=== PATIENT | female | born 1995 | race Caucasian/White ===

== ENCOUNTER 2017-11-25 19:19 | Emergency (ER) | payer OTHER ==
[2017-11-25 20:32] LABS: #Basophils 0.1 thou/uL (0.0-0.2); #Eosinphils 0.1 thou/uL (0.0-0.7); #Lymphocytes 2.6 thou/uL (1.20-3.40); #Monocytes 0.8 thou/uL (0.11-0.59); #Neutrophils 8.3 thou/uL (1.40-6.50); %Basophils 0.5 % (0.0-1.0); %Eosinophils 0.5 % (0.0-10.0); %Lymphocytes 22.1 % (21.0-51.0); %Monocytes 6.4 % (0.0-10.0); %Neutrophils 70.5 % (42.0-75.0); Hemoglobin 13.9 g/dL (12.0-16.0); Mean Corpuscular HGB CONC 33.6 g/dL (32.0-36.0); Mean Corpuscular Hemoglobin 28.7 pg (27.0-31.0); Mean Corpuscular Volume 85.6 fl (81.0-99.0); Mean Platelet Volume 6.3 fL (7.4-10.4); Platelet Count 416 thou/uL (130-400); RBC Distribution Width 11.5 % (11.5-14.5); Red Blood Cell (RBC) Count 4.83 mill/uL (4.20-5.40); White Blood Cell (WBC) Count 11.8 thou/uL (4.8-10.8)
[2017-11-25 20:55] LABS: ALT (SGPT) 10 U/L (8-55); AST (SGOT) 9 U/L (5-34); Albumin 4.1 g/dL (3.5-5.0); Alkaline Phosphatase 84 U/L (40-150); Anion Gap 13 mmol/L (10-20); BUN (Urea Nitrogen) 7 mg/dL (7.0-18.7); Bilirubin, Total 0.2 mg/dL (0.2-1.2); Calc. Creatinine Clearance 0 mL/min (70-130); Calcium 10.4 mg/dL (7.8-10.44); Carbon Dioxide 24 mmol/L (22-29); Chloride 105 mmol/L (98-107); Estimated GFR-MDRD Greater than 90; Globulin 3.4 g/dL (2.4-3.5); Glucose 95 mg/dL (70-105); Lipase 13 U/L (8-78); Potassium 3.9 mmol/L (3.5-5.1); Protein, Total 7.5 g/dL (6.0-8.3); Sodium 138 mmol/L (136-145)
[2017-11-25 23:18] LABS: BHCG - Serum Negative (NEGATIVE); Pregs Control Background? CLEAR/WHITE (CLR/WHITE); Pregs Control Bar Appear? YES (CONTROL BAR)
[2017-11-25 23:56] LABS: Bilirubin Small (Negative); Blood, Urine Large (Negative); Clarity CLOUDY (Clear); Glucose, Urine (Dipstick) Negative (Negative); Leukocyte Large (Negative); Nitrite Positive (Negative); Protein, Urine (Dipstick) 30 mg/dL (Neg-Trace); Specific Gravity, Urine 1.023 (1.002-1.036)
[2017-11-25 23:58] LABS: Bacteria/HPF 4+ HPF (None Seen); Hyaline Casts/LPF 0-3 HYALINE CAST LPF (0-3 Hyaline); Pathc Cast-AUWi Flag 0.27 (0-2.49); Squamous Epithelial 0-3 HPF (0-3)
[2017-11-26 00:01] LABS: Pregnancy Test - Urine (BHCG) Negative (Negative); Specific Gravity 1.023 (1.002-1.036)
[2017-11-26 00:02] LABS: Pregu Control Background? CLEAR/WHITE (CLR/WHITE); Pregu Control Bar Appear? YES (CONTROL BAR)
[2017-11-26] MEDS ORDERED: cefTRIAXone\\ROCEPHIN 1 GM VIAL IM SCH (00:45)
[2017-11-26] MEDS ORDERED: Lidocaine 1% PF 5 ML VIAL ONE (00:47)
== END 2017-11-26 01:32 | disposition home or self-care (01) ==
LOC: ERS 19:19
DX: N30.01 Acute cystitis with hematuria (principal); R03.0 Elevated blood-pressure reading, without diagnosis of hypertension; G43.909 Migraine, unspecified, not intractable, without status migrainosus; J45.909 Unspecified asthma, uncomplicated; F41.9 Anxiety disorder, unspecified; F32.9 Major depressive disorder, single episode, unspecified
CPT/HCPCS: 36415; 80053; 81003; 81015; 81025; 83690; 84703; 85025; 87077; 87086; 87186; 96372; J0696; J2001

== ENCOUNTER 2019-09-26 08:03 | Inpatient (IN) | payer BC, OTHER ==
[2019-09-26] MEDS ORDERED: NS / Oxytocin 40 units/1000ml 1,000 ML IV PRN (20:39)
[2019-09-26] MEDS ORDERED: Ondansetron PF 4 MG/2 ML Vial IVP PRN (20:39)
[2019-09-26] MEDS ORDERED: Ibuprofen 800 MG TAB PO PRN (20:39)
[2019-09-26] MEDS ORDERED: Promethazine HCl 25 MG/ML VIAL IM PRN (20:39)
[2019-09-26] MEDS ORDERED: hydrALAZINE 20 MG/ML VIAL SLOW IVP PRN (20:39)
[2019-09-26] MEDS ORDERED: HYDROcodone/Acetaminophen 5/325 mg Tablet PO PRN ×2 (20:39)
[2019-09-26] MEDS ORDERED: Lidocaine 1% (PF) 30 ML VIAL SC PRN (20:39)
[2019-09-26] MEDS ORDERED: Butorphanol Tartrate 1 MG/ML VIAL SLOW IVP PRN (20:39)
[2019-09-26] MEDS ORDERED: NS w/ Oxytocin 10 units 500 ML IV SCH (20:39)
[2019-09-26 21:18] LABS: Hemoglobin 12.2 g/dL (12.0-16.0); Mean Corpuscular HGB CONC 34.9 g/dL (32.0-36.0); Mean Corpuscular Hemoglobin 29.6 pg (27.0-31.0); Mean Corpuscular Volume 84.9 fL (78.0-98.0); Mean Platelet Volume 7.6 fL (7.4-10.4); Platelet Count 277 thou/uL (130-400); RBC Distribution Width 12.5 % (11.5-14.5); Red Blood Cell (RBC) Count 4.12 mill/uL (4.20-5.40); White Blood Cell (WBC) Count 11.2 thou/uL (4.8-10.8)
--- NOTE | 2019-09-26 21:50 | PDOC.EVN ---
Event Note - Event Note Event Note: MARY Pringle At bedside now COOK Balloon Placement Time: [address] cook balloon. EDC is 10/17/19 Procedure and indication reviewed. Cook balloon placed per IFU. Max filled to 80/80 sequentially as per stepwise instillation as directed per IFU Complications: none CX visually zero to 1 cm at initiation
[2019-09-26 21:55] LABS: ALT (SGPT) 9 U/L (8-55); AST (SGOT) 8 U/L (5-34); Albumin 3.4 g/dL (3.5-5.0); Alkaline Phosphatase 129 U/L (40-110); Anion Gap 18 mmol/L (10-20); BUN (Urea Nitrogen) 8 mg/dL (7.0-18.7); Bilirubin, Total 0.2 mg/dL (0.2-1.2); Calc. Creatinine Clearance 0 mL/min (70-130); Calcium 8.7 mg/dL (7.8-10.44); Carbon Dioxide 18 mmol/L (22-29); Chloride 106 mmol/L (98-107); Estimated GFR-MDRD Greater than 90; Globulin 2.6 g/dL (2.4-3.5); Glucose 99 mg/dL (70-105); Potassium 3.9 mmol/L (3.5-5.1); Sodium 138 mmol/L (136-145)
[2019-09-26 22:02] LABS: Syphilis Antibody Nonreactive (Nonreactive); Syphilis Antibody Index 0.02 S/CO (<1.00 Non-Reactive)
[2019-09-26 23:34] LABS: HBSAg Index 0.18 S/CO (0-0.99); Hep B Surf Ag Non-Reactive S/CO (NonReactive)
[2019-09-26 23:50] VITALS: BMI 38.0
--- NOTE | 2019-09-27 06:29 | PDOC.LDHP ---
Labor and Delivery H&P Chief complaint: scheduled induction (for PIH) HPI: Pt is a 24yo G1 here for scheduled IOL for induced hypertension. Current gestational age (weeks): 37 Due date: 10/17/19 Dating criteria: last menstrual period, first trimester ultrasound Grav: 1 Para: 0 OB History Details: GHTN noted @ 32 weeks, suspected large for gestational age fetus Current complications: gestational hypertension Abnormal US findings: Yes (>99% growth, last NBA 30cm) Past Medical History: depression, anxiety,migraine Current medications: pre-penelope vitamins, other (ASA flonase) Previous surgical history: none Allergies/Adverse Reactions: Allergies Allergy/AdvReac Type Severity Reaction Status Date / Time No Known Drug Allergies Allergy Verified 11/26/17 00:41 Social history: none - Physical Exam General: NAD, resting Heart: RRR Lungs: CTAB Abdomen: gravid Extremeties: no edema FHT: category 1 - OB Labs Blood type: A RH: positive Antibody Screen: negative HIV: negative RPR: negative HEPSAg: negative 1 hour GCT: negative GBS: negative Urine drug screen: negative Rubella: immune - Assessment L&D Assessment: medically indicated induction (PIH) - Plan Plan: admit to L&D, cervical ripening (with Cook Balloon and pitocin), labor augmentation if indicated, informed consent obtained, magnesium for seizure prophylaxis (if severe features noted during labor), anesthesia consult for pain management
[2019-09-27] MEDS: Lactated Ringer's 1,000 ML IV SCH ×4 (07:09→20:46)
--- NOTE | 2019-09-27 08:57 | PDOC.LDPN ---
Labor & Delivery Progress Note - Subjective Subjective: comfortable - Objective Vital signs reviewed and normal: yes General: resting Dilation: 3 Effacement: 50% Station: -2 FHT: category 1 AROM: clear fluid - Assessment (1) 37 weeks gestation of Code(s): Z3A.37 - 37 WEEKS GESTATION OF Current Visit: Yes Status : Acute (2) Gestational hypertension Code(s): O13.9 - GESTATIONAL HTN W/O SIGNIFICANT PROTEINURIA, UNSP TRIMESTER Current Visit: Yes Status: Acute Plan: continue plan of care -: A/P:IOL for PIH, BP WNL overnight. Doing well, AROM w clear fluid after Cook Balloon removed.
[2019-09-27] MEDS ORDERED: Fentanyl 4 mcg/Bup 0.1% Cadd 100 ML ONE ×2 (12:48→18:08)
[2019-09-27] MEDS ORDERED: Fentanyl 100 MCG/2 ML VIAL ONE (13:08)
[2019-09-27] MEDS ORDERED: Naloxone HCl 0.4 mg/ml Vial IVP PRN ×2 (13:27)
[2019-09-27] MEDS ORDERED: Promethazine HCl 25 MG/ML VIAL IM PRN (13:27)
[2019-09-27] MEDS ORDERED: Ondansetron PF 4 MG/2 ML Vial IVP PRN ×2 (13:27→21:35)
[2019-09-27] MEDS ORDERED: ePHEDrine/0.9% NaCl/PF SYRINGE 50 mg/10 ml SLOW IVP PRN (13:27)
[2019-09-27] MEDS ORDERED: Acetaminophen 325 MG TAB PO PRN (13:27)
[2019-09-27] MEDS ORDERED: diphenhydrAMINE 50 MG/ML VIAL IVP PRN (13:27)
[2019-09-27] MEDS ORDERED: Lactated Ringer's 500 ML IV PRN (13:27)
[2019-09-27] MEDS ORDERED: Fentanyl 4 mcg/Bupivacaine 0.1% Cassette 100 ML EPIDURAL SCH (13:30)
[2019-09-27] MEDS ORDERED: Communication Order-Pharmacy FS SCH (13:30)
--- NOTE | 2019-09-27 14:37 | PDOC.LDPN ---
Labor & Delivery Progress Note - Subjective Subjective: comfortable - Objective Vital signs reviewed and normal: yes General: resting Dilation: 4 Effacement: 90% FHT: category 1 AROM: clear fluid - Assessment (1) 37 weeks gestation of Code(s): Z3A.37 - 37 WEEKS GESTATION OF Current Visit: Yes Status : Acute (2) Gestational hypertension Code(s): O13.9 - GESTATIONAL HTN W/O SIGNIFICANT PROTEINURIA, UNSP TRIMESTER Current Visit: Yes Status: Acute Plan: continue plan of care
[2019-09-27] MEDS: NS / Oxytocin 40 units/1000ml 1,000 ML IV SCH (19:50)
--- NOTE | 2019-09-27 19:54 | PDOC.OPDEL ---
OB Operative/Delivery Note Delivery Dr/Surgeon: Osiel Pre-Delivery Diagnosis: medically indicated induction (PIH) Procedure/Post Delivery Dx: spontaneous vaginal delivery Weeks gestation: 37 Anesthesia: epidural - Findings A Sex: male - Additional Findings/Plan Placenta delivered: spontaneous Repaired Obstetrical Laceration: 2nd degree Compilations/Other Findings: tight double nuchal cut at the perineum Post delivery plan: routine recovery
[2019-09-27] MEDS: NS w/ Oxytocin 10 units 500 ML IV SCH (20:44)
[2019-09-27] MEDS ORDERED: Benzocaine-Menthol 82.5 ML CAN TOP PRN (21:35)
[2019-09-27] MEDS ORDERED: Lanolin Ointment 7 GM TUBE TOP PRN (21:35)
[2019-09-27] MEDS ORDERED: Milk Of Magnesia 30 ML UDCUP PO PRN (21:35)
[2019-09-27] MEDS ORDERED: Bisacodyl 10 MG SUPP PR PRN (21:35)
[2019-09-27] MEDS ORDERED: diphenhydrAMINE 25 MG CAP PO PRN (21:35)
[2019-09-27] MEDS ORDERED: Preparation H Ointment 28 GM TUBE PR PRN (21:35)
[2019-09-27] MEDS ORDERED: hydrALAZINE 20 MG/ML VIAL SLOW IVP PRN (21:35)
[2019-09-27] MEDS ORDERED: HYDROcodone/Acetaminophen 5/325 mg Tablet PO PRN ×2 (21:35)
[2019-09-27] MEDS ORDERED: NS / Oxytocin 40 units/1000ml 1,000 ML ONE (21:36)
[2019-09-27] MEDS ORDERED: Docusate Calcium (SURFAK) 240 MG CAP PO SCH (21:45)
[2019-09-27] MEDS: Ibuprofen 800 MG TAB PO SCH (22:33)
[2019-09-28] MEDS: Ibuprofen 800 MG TAB PO SCH ×3 (05:58→20:59)
[2019-09-28] MEDS: NS / Oxytocin 40 units/1000ml 1,000 ML IV SCH (05:58)
[2019-09-28] MEDS: Docusate Calcium (SURFAK) 240 MG CAP PO SCH ×2 (08:43→08:46)
[2019-09-28] MEDS: Ferrous Sulfate 325 MG TAB PO SCH ×2 (08:43→16:38)
[2019-09-28] MEDS: Prenatal Vitamin 1 TAB PO SCH ×2 (08:44→08:46)
[2019-09-28] MEDS ORDERED: Adacel (T-DAP) 0.5 ML SYRINGE IM ONE (09:00)
--- NOTE | 2019-09-28 11:19 | PDOC.PP ---
Post Progress Note Post Day #: 1 Subjective: doing well, tired, minimal pain, latching but needs help w latch PO intake tolerated: yes Flatus: yes Ambulation: yes Vital Signs (12 hours) Temp Pulse Resp BP Pulse Ox 09/28/19 11:16 98.1 F 86 20 116/64 09/28/19 08:35 98 09/28/19 04:00 98 F 85 16 127/71 98 09/28/19 00:00 98.4 F 93 16 115/67 96 Weight Weight 250 lb - Physical Examination General: NAD Respiratory: non-labored breathing Abdominal: no distention Fundus firm & at: below umb Skin: no rash Neurological: no gross focal deficits Psychiatric: A&Ox3, normal affect Result Diagrams: 09/26/19 21:02 09/26/19 21:03 Additional Labs: Post Labs Blood Type A POSITIVE 09/26/19 22:49 Hep Bs Antigen Non-Reactive S/CO (NonReactive) 09/26/19 21:02 (1) 37 weeks gestation of Code(s): Z3A.37 - 37 WEEKS GESTATION OF Status: Acute (2) Gestational hypertension Code(s): O13.9 - GESTATIONAL HTN W/O SIGNIFICANT PROTEINURIA, UNSP TRIMESTER Status: Acute (3) Vaginal delivery Code(s): O80 - ENCOUNTER FOR FULL-TERM UNCOMPLICATED DELIVERY Status: Acute - Assessment/Plan PPD1 doing well, BP WNL, no concerns, likely DC tomorrow, LC pending.
[2019-09-29] MEDS: Ibuprofen 800 MG TAB PO SCH ×2 (05:07→13:42)
[2019-09-29 07:24] VITALS: BP 128/65; TEMP 97.9
[2019-09-29] MEDS: Prenatal Vitamin 1 TAB PO SCH (09:31)
[2019-09-29] MEDS: Docusate Calcium (SURFAK) 240 MG CAP PO SCH (09:31)
[2019-09-29] MEDS: Ferrous Sulfate 325 MG TAB PO SCH (09:32)
--- NOTE | 2019-09-29 10:28 | PDOC.PP ---
Post Progress Note Post Day #: 2 Subjective: doing well, tired PO intake tolerated: yes Flatus: yes Ambulation: yes Vital Signs (12 hours) Temp Pulse Resp BP Pulse Ox 09/29/19 07:05 97.9 F 90 12 128/65 98 09/29/19 05:00 98.1 F 76 18 123/71 97 09/29/19 01:00 97.9 F 79 20 130/79 96 Weight Weight 250 lb - Physical Examination General: NAD Respiratory: non-labored breathing Abdominal: no distention Fundus firm & at: below umb Skin: no rash Neurological: no gross focal deficits Psychiatric: A&Ox3, normal affect Result Diagrams: 09/26/19 21:02 09/26/19 21:03 Additional Labs: Post Labs Blood Type A POSITIVE 09/26/19 22:49 Hep Bs Antigen Non-Reactive S/CO (NonReactive) 09/26/19 21:02 (1) 37 weeks gestation of Code(s): Z3A.37 - 37 WEEKS GESTATION OF Status: Acute (2) Gestational hypertension Code(s): O13.9 - GESTATIONAL HTN W/O SIGNIFICANT PROTEINURIA, UNSP TRIMESTER Status: Acute (3) Vaginal delivery Code(s): O80 - ENCOUNTER FOR FULL-TERM UNCOMPLICATED DELIVERY Status: Acute - Assessment/Plan PPD2 doing well, normal BP PP, will follow at home.
== END 2019-09-29 15:05 | disposition home or self-care (01) | DRG 807 ==
LOC: L&D 18:05 → 3SW 09-27 22:07 → EDSTATUS 10-17 08:02
PROVIDERS: ADMIT Obstetrics & Gynecology; ATTEND Obstetrics & Gynecology
PROC: 10E0XZZ Delivery of Products of Conception, External Approach (ICD-10-PCS; principal; 2019-09-26)
PROC: 0KQM0ZZ Repair Perineum Muscle, Open Approach (ICD-10-PCS; 2019-09-26)
PROC: 0U7C7ZZ Dilation of Cervix, Via Natural or Artificial Opening (ICD-10-PCS; 2019-09-26)
PROC: 3E033VJ Introduction of Other Hormone into Peripheral Vein, Percutaneous Approach (ICD-10-PCS; 2019-09-26)
DX: O13.4 Gestational [pregnancy-induced] hypertension without significant proteinuria, complicating childbirth (principal); Z37.0 Single live birth; Z3A.37 37 weeks gestation of pregnancy; O70.1 Second degree perineal laceration during delivery; O99.344 Other mental disorders complicating childbirth; F32.9 Major depressive disorder, single episode, unspecified; F41.9 Anxiety disorder, unspecified; O69.1XX0 Labor and delivery complicated by cord around neck, with compression, not applicable or unspecified
CPT/HCPCS: 36415; 51702; 80053; 85027; 86780; 86850; 86900; 86901; 87340; J0595; J2590; J3010